=== PATIENT | male | born 1945 | race Caucasian/White ===

== ENCOUNTER → 2023-08-31 | Day surgery (SDC) | payer MEDICARE, MEDICAID ==
[~2023-08-31] VITALS: Ht 177.8 cm; Wt 91.6 kg
[~2023-08-31] MED LIST: AMLO5TAB88 PO; ATOR20TA65 PO; LABETALOL 5MG/ML SYR 20 MG/4 ML SYRINGE IV PRN; LOPE2CAP PO; MEPERIDINE HCL/PF 25MG/ML CPJ IV PRN; METF-415 PO; ONDANSETRON HCL 4MG/2ML INJ IV PRN; PANT40TA51 PO; PROPOFOL 200MG/20ML VIAL IV ONE; SIMETHICONE 40 MG/0.6 ML 15ML ONE; SODIUM CHLORIDE 0.9% 1,000 ML IV SCH
[2023-08-31 08:34] LABS: BASOPHILS % 0.7 % (0.0-2.0); HEMOGLOBIN. 13.1 g/dL (14.0-18.0); MEAN CORPUSCULAR HEMOGLOBIN 26.7 pg (28.0-32.0); MEAN CORPUSCULAR HGB CONC 32.8 g/dL (31.0-37.0); MEAN CORPUSCULAR VOLUME 81.4 fL (80.0-94.0); MONOCYTES % 7.9 % (2.0-8.0); NEUTROPHILS % 68.4 % (40.0-76.0); PLATELET 105 x1000/uL (130-400); RED BLOOD CELL COUNT 4.91 mill/uL (4.7-6.1); RED CELL DISTRIBUTION WIDTH 15.5 % (11.6-14.6); WHITE BLOOD COUNT 5.2 x1000/uL (4.5-11.0)
[2023-08-31 09:26] LABS: CARBON DIOXIDE 23 mEq/L (21-32); CHLORIDE 107 mEq/L (98-107); CREATININE 0.7 mg/dL (0.6-1.3); GLUCOSE 102 mg/dL (70-105); POTASSIUM 4.5 mEq/L (3.5-5.1); SODIUM 139 mEq/L (136-145)
[2023-08-31 09:27] LABS: UREA NITROGEN BLOOD 9 mg/dL (9-23)
[2023-08-31 11:41] VITALS: BP 128/62; PULSE 60; RESP 15
[2023-08-31] MEDS: HYDROMORPHONE HCL/PF 2MG/ML CPJ IV PRN (11:41)
== END | disposition home or self-care (01) ==
LOC: OR 07:57
PROVIDERS: ATTEND Internal Medicine Gastroenterology
DX: I85.00 Esophageal varices without bleeding (principal); K74.60 Unspecified cirrhosis of liver; K44.9 Diaphragmatic hernia without obstruction or gangrene; K31.7 Polyp of stomach and duodenum; E11.9 Type 2 diabetes mellitus without complications; E78.00 Pure hypercholesterolemia, unspecified; I10 Essential (primary) hypertension; Z79.84 Long term (current) use of oral hypoglycemic drugs; Z79.899 Other long term (current) drug therapy; Z98.890 Other specified postprocedural states
CPT/HCPCS: 80048; 85025; 36415; 43244; J2704; J1170; Z7610 ×9

== ENCOUNTER → 2023-10-12 | Day surgery (SDC) | payer MEDICARE, MEDICAID ==
[~2023-10-12] VITALS: Ht 177.8 cm; Wt 90.3 kg
[~2023-10-12] MED LIST changes: +HYDROMORPHONE HCL/PF 2MG/ML CPJ ONE; +LABETALOL 5MG/ML 4ML INJ IV PRN; -LABETALOL 5MG/ML SYR 20 MG/4 ML SYRINGE IV PRN; +LACT10SO81 PO; +LIDOCAINE HCL 1% 10 MG/ML 10ML VIAL ONE; -SODIUM CHLORIDE 0.9% 1,000 ML IV SCH
[2023-10-12 09:18] LABS: BASOPHILS % 0.7 % (0.0-2.0); DIFFERENTIAL COMMENT 0; EOSINOPHILS % 0.4 % (0.0-5.0); HEMATOCRIT. 40.3 % (42.0-52.0); HEMOGLOBIN. 13.3 g/dL (14.0-18.0); LYMPHOCYTES % 20.7 % (20.0-50.0); MEAN CORPUSCULAR HEMOGLOBIN 26.2 pg (28.0-32.0); MEAN CORPUSCULAR HGB CONC 33.1 g/dL (31.0-37.0); MEAN CORPUSCULAR VOLUME 79.3 fL (80.0-94.0); MEAN PLATELET VOLUME 9.9 fl (7.4-10.4); NEUTROPHILS % 72.2 % (40.0-76.0); PLATELET 98 x1000/uL (130-400); RED BLOOD CELL COUNT 5.08 mill/uL (4.7-6.1); RED CELL DISTRIBUTION WIDTH 16.1 % (11.6-14.6); WHITE BLOOD COUNT 5.5 x1000/uL (4.5-11.0)
[2023-10-12 09:24] LABS: CHLORIDE 109 mEq/L (98-107); POTASSIUM 4.2 mEq/L (3.5-5.1); SODIUM 140 mEq/L (136-145)
[2023-10-12 09:25] LABS: CALCIUM 8.8 mg/dL (8.7-10.4); CARBON DIOXIDE 23 mEq/L (21-32)
[2023-10-12 09:30] LABS: CREATININE 0.7 mg/dL (0.6-1.3); GLUCOSE 97 mg/dL (70-105); UREA NITROGEN BLOOD 8 mg/dL (9-23)
[2023-10-12] MEDS: SODIUM CHLORIDE 0.9% 1,000 ML IV SCH (09:58)
[2023-10-12 11:35] VITALS: BP 125/62; PULSE 53; RESP 20
[2023-10-12] MEDS: HYDROMORPHONE HCL/PF 2MG/ML CPJ IV PRN (11:35)
== END | disposition home or self-care (01) ==
LOC: OR 08:00
PROVIDERS: ATTEND Internal Medicine Gastroenterology
DX: I85.00 Esophageal varices without bleeding (principal); K74.60 Unspecified cirrhosis of liver; K44.9 Diaphragmatic hernia without obstruction or gangrene; I10 Essential (primary) hypertension; E11.9 Type 2 diabetes mellitus without complications; E78.5 Hyperlipidemia, unspecified; K31.7 Polyp of stomach and duodenum; Z79.84 Long term (current) use of oral hypoglycemic drugs; Z79.899 Other long term (current) drug therapy; Z98.890 Other specified postprocedural states
CPT/HCPCS: 43244; 80048; 85025; 36415; 93005; J3490; J2704; J1170; Z7610 ×10

== ENCOUNTER 2024-02-29 07:52 | Day surgery (SDC) | payer MEDICARE, MEDICAID ==
[~2024-02-29] VITALS: Ht 177.8 cm; Wt 89.8 kg
[~2024-02-29 07:52] MED LIST changes: -HYDROMORPHONE HCL/PF 2MG/ML CPJ ONE; -LABETALOL 5MG/ML 4ML INJ IV PRN; -LIDOCAINE HCL 1% 10 MG/ML 10ML VIAL ONE; -MEPERIDINE HCL/PF 25MG/ML CPJ IV PRN; -ONDANSETRON HCL 4MG/2ML INJ IV PRN; -PROPOFOL 200MG/20ML VIAL IV ONE; -SIMETHICONE 40 MG/0.6 ML 15ML ONE
[2024-02-29 08:45] LABS: BASOPHILS % 0.5 % (0.0-2.0); EOSINOPHILS % 0.7 % (0.0-5.0); HEMATOCRIT. 41.2 % (42.0-52.0); LYMPHOCYTES % 22.3 % (20.0-50.0); MEAN CORPUSCULAR HEMOGLOBIN 25.7 pg (28.0-32.0); MEAN CORPUSCULAR HGB CONC 31.7 g/dL (31.0-37.0); MEAN PLATELET VOLUME 9.2 fl (7.4-10.4); MONOCYTES % 6.9 % (2.0-8.0); NEUTROPHILS % 69.6 % (40.0-76.0); PLATELET 97 x1000/uL (130-400); RED BLOOD CELL COUNT 5.08 mill/uL (4.7-6.1); RED CELL DISTRIBUTION WIDTH 15.7 % (11.6-14.6); WHITE BLOOD COUNT 4.6 x1000/uL (4.5-11.0)
[2024-02-29 08:51] LABS: CHLORIDE 109 mEq/L (98-107); POTASSIUM 4.7 mEq/L (3.5-5.1); SODIUM 141 mEq/L (136-145)
[2024-02-29 08:52] LABS: CARBON DIOXIDE 26 mEq/L (21-32)
[2024-02-29 08:53] LABS: CALCIUM 9.3 mg/dL (8.7-10.4)
[2024-02-29 08:58] LABS: CREATININE 0.7 mg/dL (0.6-1.3); GLUCOSE 118 mg/dL (70-105); UREA NITROGEN BLOOD 11 mg/dL (9-23)
[2024-02-29] MEDS: SODIUM CHLORIDE 0.9% 1,000 ML IV SCH (09:29)
[2024-02-29] MEDS ORDERED: PROPOFOL 200MG/20ML VIAL IV ONE (10:43)
[2024-02-29] MEDS ORDERED: ETOMIDATE 2MG/ML 10ML VIAL IV ONE (10:51)
[2024-02-29] MEDS ORDERED: HYDROMORPHONE HCL/PF 1MG/ML INJ IV PRN ×2 (11:15)
[2024-02-29] MEDS ORDERED: LABETALOL 5MG/ML 4ML INJ IV PRN (11:15)
[2024-02-29] MEDS ORDERED: ONDANSETRON HCL 4MG/2ML INJ IV PRN (11:15)
[2024-02-29] MEDS ORDERED: GLYCOPYRROLATE 0.2 MG/ML 2ML VIAL IV PRN (11:15)
[2024-02-29] MEDS ORDERED: HYDRALAZINE 20MG/ML VIAL IV PRN (11:15)
[2024-02-29 12:21] VITALS: BP 121/70; PULSE 63; RESP 16
[2024-02-29] MEDS: HYDROMORPHONE HCL/PF 1MG/ML INJ IV PRN (12:21)
== END 2024-02-29 13:00 | disposition home or self-care (01) ==
LOC: OR 07:52
PROVIDERS: ATTEND Internal Medicine Gastroenterology
DX: I85.10 Secondary esophageal varices without bleeding (principal); K74.60 Unspecified cirrhosis of liver; K31.7 Polyp of stomach and duodenum; K44.9 Diaphragmatic hernia without obstruction or gangrene; E78.5 Hyperlipidemia, unspecified; E11.9 Type 2 diabetes mellitus without complications; I10 Essential (primary) hypertension; K31.89 Other diseases of stomach and duodenum; K76.6 Portal hypertension; Z79.84 Long term (current) use of oral hypoglycemic drugs; Z79.899 Other long term (current) drug therapy; Z98.890 Other specified postprocedural states
CPT/HCPCS: 43244; 80048; 82962; 85025; 36415; 93005; J3490; J2704; J1171